=== PATIENT | male | born 1950 | race Caucasian/White ===

== ENCOUNTER 2023-11-20 09:16 | Outpatient (CLI) | payer OTHER | END 2023-11-20 23:59 | disposition home or self-care (01) | LOC: RAD 09:16 | PROVIDERS: ATTEND Chiropractor | DX: M47.816 Spondylosis without myelopathy or radiculopathy, lumbar region (principal); M48.07 Spinal stenosis, lumbosacral region; M54.50 Low back pain, unspecified; M41.80 Other forms of scoliosis, site unspecified | CPT/HCPCS: 72110 ==